=== PATIENT | female | born 1975 | race Two or more races ===

== ENCOUNTER 2021-07-03 06:44 | Outpatient (CLI) | payer SELFPAY ==
[2021-07-03] VITALS (9 sets, daily range): BP systolic 100–128; BP diastolic 51–70
[~2021-07-03] VITALS: Ht 160 cm; Wt 60.0 kg
[2021-07-03 07:35] LABS: BASO % 1 % (0-3); EOS # 0.2 x10^3/uL (0.0-0.7); EOS % 6 % (0-3); HEMATOCRIT 29.7 % (36.0-47.0); HEMOGLOBIN 9.4 g/dL (12.0-15.5); LYMPH % 45 % (24-48); MEAN CORPUSCULAR HEMOGLOBIN 24 pg (25-35); MEAN CORPUSCULAR HGB CONC 32 g/dL (31-37); MEAN CORPUSCULAR VOLUME 75 fL (79-100); MONO # 0.5 x10^3/uL (0.0-1.1); MONO % 10 % (0-9); NEUT # 1.7 x10^3/uL (1.8-7.7); NEUT % 38 % (31-73); PLATELET COUNT 331 x10^3/uL (140-400); RED BLOOD COUNT 3.97 x10^6/uL (3.50-5.40); RED CELL DISTRIBUTION WIDTH 16.5 % (11.5-14.5); WHITE BLOOD COUNT 4.4 x10^3/uL (4.0-11.0)
[2021-07-03 07:49] LABS: PROTHROMBIN TIME PATIENT 12.7 SEC (11.7-14.0)
[2021-07-03] MEDS ORDERED: MIDAZOLAM HCL/PF 2 MG/2 ML VIAL. ONE (08:29)
[2021-07-03] MEDS ORDERED: ONDANSETRON PF 4 MG/2 ML VIAL. ONE (08:29)
[2021-07-03] MEDS ORDERED: fentaNYL PF VIAL 100 MCG/2 ML VIAL ONE (08:29)
[2021-07-03] MEDS ORDERED: LIDOCAINE WITH 8.4% SOD BICARB 3 ML DISP.SYRIN. IJ ONE (08:30)
[2021-07-03] MEDS ORDERED: fentaNYL PF VIAL 100 MCG/2 ML VIAL IV ONE (08:30)
[2021-07-03] MEDS ORDERED: MIDAZOLAM HCL/PF 2 MG/2 ML VIAL. IV ONE (08:30)
[2021-07-03] MEDS ORDERED: ONDANSETRON PF 4 MG/2 ML VIAL. IVP ONE (08:45)
--- NOTE | 2021-07-03 10:43 | NUR ---
pt A&O x4. denies pain. VSS. tolerates po well. ambulated to BR w/o problem. rt abd dressing clean D&I. d/c instructions given, questions answered. out to vehicle per w/c - to drive her home.
--- NOTE | 2021-07-04 07:48 | RAD ---
Procedure: IR LIVER CORE BIOPSY, US GUIDED BIOPSY Clinical Indication: Elevated LFTs Anesthesia: Local with moderate sedation. Continuous cardiopulmonary monitoring was preformed by inde pendent qualified nursing personnel. Please refer to the medical record for exact doses of medications utilized to achieve moderate sedati on. Conscious sedation was administered for 16 minutes. Complications: None Consent: The procedure was explained in its entirety to the patient or the patients designated repre sentative by a member of the treatment team, including a discussion of the risks, benefits and common ly accepted alternatives to the procedure, as well as the expected consequences of no therapy whatsoe arpit. Discussion of the risks included, but was not limited to, those that are most frequent and those that are rare but possibly severe or life-threatening, as well as the possibility of unforeseen comp lications. All questions were answered and informed consent was obtained. Sterility: All elements of maximal sterile barrier technique including the use of a cap, mask, steril e gloves, sterile drape, appropriate hand hygiene, and 2% chlorhexidine for cutaneous antisepsis (or acceptable alternative antiseptic per current guidelines) were followed for this procedure. Patient was placed in the supine position. The right upper quadrant was prepped and draped in appropr iate sterile fashion. A timeout was performed. Limited ultrasound scanning of the liver was performe d. The superficial right hepatic lobe was identified and a skin entry site was marked on the patient' s skin. Local lidocaine was given. A small skin onur was made followed by the 17 gauce khurram tip in troducer needle which was advanced to the superficial right hepatic lobe. 3 18-gauge core needle biop sies were obtained. The blunt stylette was placed through the introducer needle and the needle was re moved. Pressure was held to achieve hemostasis and a sterile dressing was placed. Limited scanning th roughout the area did not demonstrate any immediate complications. Impression: Ultrasound guided nontargeted hepatic biopsy. Electronically signed by: Alcon Lackey MD (07/03/2021 3:32 PM) [id number]
== END 2021-07-03 11:00 | disposition home or self-care (01) ==
LOC: INTRAD 06:44
PROVIDERS: ATTEND Internal Medicine Gastroenterology
DX: R79.89 Other specified abnormal findings of blood chemistry (principal); Z79.899 Other long term (current) drug therapy; Z98.890 Other specified postprocedural states
CPT/HCPCS: 36415; 47000; 76942; 85025; 85610; 99152; J2250; J2405; J3010; J3490